=== PATIENT | female | born 1955 | race Caucasian/White ===

== ENCOUNTER 2017-06-30 13:58 | Emergency (ER) | payer OTHER ==
[2017-06-30 14:07] VITALS: BP 150/91; PULSE 89; TEMP 98.6; BMI 31.9
--- NOTE | 2017-06-30 14:16 | PDOC ---
History of Present Illness - General Chief Complaint: Sore Throat Stated Complaint: SORE THROAT Time Seen by Provider: 06/30/17 14:00 History Source: Patient Exam Limitations: No Limitations - History of Present Illness Initial Comments: 06/30/17 14:10 62y F hx of DM, HTN presents with complaint of sore throat x 2-3 days. The pt endorses subjective fever iniially, with mild congestion and cough. Pt notes fever/cough improved and the pts sor throat has been worsenng. 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 No cp, sob, abd pain, n/v, diarrhea, dysuria, rashes. Past History - Past Medical History Allergies/Adverse Reactions: Allergies Allergy/AdvReac Type Severity Reaction Status Date / Time aspirin Allergy Verified 06/30/17 13:59 Home Medications: Ambulatory Orders Folic Acid 1 mg PO DAILY 06/30/17 Losartan Potassium [Cozaar] 100 mg PO DAILY 06/30/17 Methotrexate [Mexate -] 10 mg PO Q7D 06/30/17 Sitagliptin Phos/Metformin HCl [Janumet 50-500 mg Tablet] 1 each PO DAILY Diabetes: Yes HTN: Yes - Psycho/Social/Smoking Cessation Hx Anxiety: No Suicidal Ideation: No Smoking History: Never smoked Have you smoked in the past 12 months: No Information on smoking cessation initiated: No Hx Alcohol Use: No Drug/Substance Use Hx: No Substance Use Type: None Review of Systems - Review of Systems Comments:: 06/30/17 14:17 Constitutional - +subjective fever (Resolved) no reported , Chills, HEENT: + sore throat, nasal congestion no reported vision changes, Respiratory: +cough (resolved) no reported sob, hemoptysis Cardiac: no reported chest pain, palpitations, light headedness, leg swelling Abd/GI: no reported abd pain, nausea, vomiting, blood per rectum, melena, diarrhea : no reported dysuria, frequency, discharge Musculskelatal - no reported back pain, joint swelling skin - no reported bruising, erythema, rash neurological: no reported headache, numbness, focal weakness, tingling, ataxia, hematologic: no reported anemia, easy bruising, easy bleeding *Physical Exam - Vital Signs Last Vital Signs Temp Pulse Resp BP Pulse Ox 98.6 F 89 20 150/91 96 06/30/17 13:59 06/30/17 13:59 06/30/17 13:59 06/30/17 13:59 06/30/17 13:59 - Physical Exam Comments: 06/30/17 14:18 GENERAL: The patient is awake, alert, and fully oriented, Nontoxic - in no acute distress. HEAD: Normocephalic, atraumatic. EYES: extraocular movements intact, sclera anicteric, conjunctiva clear. ENT: mild posterior erythema with whitish exudate, NECK: Normal range of motion, supple, +scattered cervical lympadenopathy LUNGS: Breath sounds equal, clear to auscultation bilaterally. No wheezes, no rhonchi, no rales. HEART: Regular rate and rhythm, normal S1 and S2 without murmur, rub or gallop. Medical Decision Making - Medical Decision Making 06/30/17 14:19 suspect viral vs strep pharyngitis will obtain rapid strep pt declines motrin/tylenol as she has her own 06/30/17 14:44 the pt does not want to wait for the rapid strep results. will give rx if culture is + but will dc with pmd fu return precautions were discussed I discussed the physical exam findings, ancillary test results and final diagnoses with the patient. I answered all of the patient's questions. The patient was satisfied with the care received and felt comfortable with the discharge plan and treatment plan. The patient will call their primary care physician within 24 hours to arrange follow-up and will return to the Emergency Department with any new, persistent or worsening symptoms. 07/01/17 07:21 A portion of this note was documented by scribe services under my direction. I have reviewed the details of the note, within reason, and agree with the documentation with the following case summary and management plan written by me *DC/Admit/Observation/Transfer Diagnosis at time of Disposition: Pharyngitis Qualifiers: Pharyngitis/tonsillitis etiology: other specified organisms Qualified Code(s): J02.8 - Acute pharyngitis due to other specified organisms - Discharge Dispostion Disposition: HOME Condition at time of disposition: Stable Admit: No - Referrals Referrals: [facility] [Provider Group] - Patient Instructions Printed Discharge Instructions: DI for Pharyngitis/Tonsillopharyngitis -- Adult Additional Instructions: Your rapid strep is negative. It will be sent for a formal throat culture. If i ti spositive, we will contact you. Take ibuprofen/tylenol for your pain. In any case, follow up with your primary care doctor next week for reevaluation. If you have difficulty breathing, difficulty swallowing, changes to your voice, or any concerns return immediately to the emergency department for reevaluation. Print Language: [id number]
== END 2017-06-30 14:52 | disposition home or self-care (01) ==
LOC: FER 13:58
DX: J02.8 Acute pharyngitis due to other specified organisms (principal); I10 Essential (primary) hypertension; E11.9 Type 2 diabetes mellitus without complications; Z88.6 Allergy status to analgesic agent
CPT/HCPCS: 87070; 87077; 87430; 99281-25